=== PATIENT | female | born 1955 | race Caucasian/White ===

== ENCOUNTER 2020-09-11 12:46 | Inpatient (IN) ==
[2020-09-11] MEDS ORDERED: Ondansetron 4 MG/2 ML VIAL IVP ONE (12:54)
[2020-09-11] MEDS ORDERED: 0.9 % Sodium Chloride 1,000 ML IVC ONE (12:54)
[2020-09-11] MEDS ORDERED: Morphine Sulfate 2 MG/ML SYRINGE IVP ONE (12:55)
[2020-09-11 13:04] LABS: Basophils % 0.5 %; Eosinophils # 0.1 K/mcL (0.0-0.6); Eosinophils % 0.9 %; Hematocrit 36.4 % (35.3-44.9); Hemoglobin 11.5 g/dL (11.5-15.4); Immature Granulocytes % 0.2 % (0-4); Lymphocytes # 2.7 K/mcL (0.6-4.6); Lymphocytes % 34.1 %; Mean Corpuscular HGB Conc 31.6 g/dL (31.6-35.5); Mean Corpuscular Hemoglobin 27.1 pg (28.0-33.3); Mean Corpuscular Volume 85.6 fL (83.0-100.0); Mean Platelet Volume 9.4 fL (9.4-12.4); Monocytes # 0.6 K/mcL (0.0-1.3); Monocytes % 7.5 %; Neutrophils # 4.6 K/mcL (1.6-8.9); Platelet Count 365 K/mcL (140-400); Red Blood Count 4.25 M/mcL (3.82-4.97); Red Cell Distribution Width 14.7 % (11.5-14.5); Segmented Neutrophils % 56.8 %
[2020-09-11 13:18] LABS: Alanine Aminotransferase 24 Units/L (7-52); Albumin 3.9 g/dL (3.5-5.7); Albumin/Globulin Ratio 1.3 (1.1-2.2); Alkaline Phosphatase 57 Units/L (34-104); Aspartate Amino Transferase 33 Units/L (13-39); BUN/Creatinine Ratio 17 (6-26); Bilirubin,Total 0.4 mg/dL (0.3-1.0); Blood Urea Nitrogen 14 mg/dL (8-23); Calcium 9.1 mg/dL (8.6-10.3); Carbon Dioxide 30 mEq/L (23-29); Chloride 95 mEq/L (98-107); Glucose 105 mg/dL (70-105); Osmolality,Calculated 273 (280-300); Potassium 3.8 mEq/L (3.5-5.1); Sodium 131 mEq/L (136-145); Total Protein 6.9 g/dL (6.4-8.9); eGFR For African Americans > 60 (> 60); eGFR For Non-African Americans > 60 (> 60)
[2020-09-11 13:21] LABS: INR 1.2; Troponin I < 0.03 ng/mL (< 0.04)
[2020-09-11] MEDS ORDERED: Naloxone 0.4 MG/ML INJ IVP PRN (17:25)
[2020-09-11] MEDS ORDERED: MOM Conc 10 ML UD.LIQ PO PRN (17:25)
[2020-09-11] MEDS ORDERED: *HR* HYDROcodone/Acet 5/325 mg TABLET PO PRN (17:25)
[2020-09-11] MEDS ORDERED: Ondansetron ODT 4 MG TAB.RAPDIS SL PRN (17:25)
[2020-09-11] MEDS ORDERED: Acetaminophen 325 MG TABLET PO PRN (17:25)
[2020-09-11] MEDS ORDERED: Ondansetron 4 MG/2 ML VIAL IVP PRN (17:25)
[2020-09-11] MEDS ORDERED: Mag Hydrox/Al Hydrox/Simeth 30 ML UDC PO PRN (17:25)
[2020-09-11] MEDS ORDERED: Melatonin 3 MG TABLET PO PRN (17:25)
[2020-09-11] MEDS ORDERED: *HR* OxyCODONE/APAP 5/325 TABLET PO PRN (17:30)
[2020-09-11] MEDS: Budesonide/Formoterol 160/4.5 1 PUFF INH IH SCH (18:39)
[2020-09-11] MEDS: hydrOXYzine pamoate 25 MG CAPSULE PO SCH (20:21)
[2020-09-11] MEDS: Gabapentin 300 MG CAPSULE PO SCH (20:23)
[2020-09-11] MEDS ORDERED: traZODone 50 MG TABLET PO SCH (21:00)
[2020-09-11] MEDS ORDERED: Mirtazapine 15 MG TABLET PO SCH (21:00)
[2020-09-11] MEDS ORDERED: Melatonin 3 MG TABLET PO SCH (21:00)
[2020-09-11 21:04] LABS: Bilirubin,Urine Negative (Negative); Blood,Urine Negative (Negative); Clarity,Urine Clear (Clear); Color,Urine Yellow (Yellow); Glucose,Urine (UA) Normal (Normal); Ketones,Urine Negative (Negative); Leukocyte Esterase,Urine Negative (Negative); Nitrite,Urine Negative (Negative); Protein,Urine Negative (Neg-Trace); Specific Gravity,Urine 1.015 (1.010-1.025); Urobilinogen,Urine Normal (Normal)
[2020-09-12 05:42] LABS: Basophils # 0.1 K/mcL (0.0-0.2); Basophils % 1.2 %; Eosinophils # 0.2 K/mcL (0.0-0.6); Hematocrit 35.8 % (35.3-44.9); Immature Granulocytes % 0.2 % (0-4); Lymphocytes % 51.1 %; Mean Corpuscular HGB Conc 30.7 g/dL (31.6-35.5); Mean Platelet Volume 9.3 fL (9.4-12.4); Monocytes # 0.5 K/mcL (0.0-1.3); Monocytes % 9.1 %; Neutrophils # 2.1 K/mcL (1.6-8.9); Platelet Count 289 K/mcL (140-400); Red Blood Count 4.07 M/mcL (3.82-4.97); Red Cell Distribution Width 14.7 % (11.5-14.5); Segmented Neutrophils % 35.4 %; White Blood Count 5.9 K/mcL (4.3-11.1)
[2020-09-12 06:03] LABS: Alanine Aminotransferase 21 Units/L (7-52); Albumin 3.4 g/dL (3.5-5.7); Albumin/Globulin Ratio 1.3 (1.1-2.2); Alkaline Phosphatase 51 Units/L (34-104); Aspartate Amino Transferase 28 Units/L (13-39); BUN/Creatinine Ratio 15 (6-26); Bilirubin,Total 0.3 mg/dL (0.3-1.0); Blood Urea Nitrogen 14 mg/dL (8-23); Calcium 8.8 mg/dL (8.6-10.3); Carbon Dioxide 31 mEq/L (23-29); Chloride 101 mEq/L (98-107); Globulin 2.7 g/dL (2.4-3.5); Glucose 89 mg/dL (70-105); Osmolality,Calculated 282 (280-300); Phosphorous 3.9 mg/dL (2.7-4.5); Sodium 136 mEq/L (136-145); Total Protein 6.1 g/dL (6.4-8.9); eGFR For African Americans > 60 (> 60); eGFR For Non-African Americans > 60 (> 60)
[2020-09-12] MEDS ORDERED: *HR* Enoxaparin 30 MG/0.3 ML SYRINGE SQ SCH (08:59)
[2020-09-12] MEDS ORDERED: Loratadine 10 MG TABLET PO SCH (09:00)
[2020-09-12] MEDS ORDERED: Nicotine 21 MG PATCH.TD24 TD SCH (09:00)
[2020-09-12] MEDS ORDERED: Aspirin Enteric Coated 325 MG Tablet PO SCH (09:00)
[2020-09-12] MEDS ORDERED: Tiotropium 10 INH DOSE IH SCH (09:00)
[2020-09-12] MEDS: Budesonide/Formoterol 160/4.5 1 PUFF INH IH SCH (09:53)
[2020-09-12] MEDS: Gabapentin 300 MG CAPSULE PO SCH (09:53)
[2020-09-12] MEDS: hydrOXYzine pamoate 25 MG CAPSULE PO SCH (09:53)
[2020-09-12 11:07] VITALS: BP 129/68
== END 2020-09-12 13:51 | disposition home or self-care (01) | DRG 421 ==
LOC: EMEROOGRE 12:46 → INPGRE 15:19
PROVIDERS: ADMIT Family Medicine; ATTEND Family Medicine